=== PATIENT | male | born 1930 | race Caucasian/White ===

== ENCOUNTER → 2016-11-05 | Outpatient (CLI) | payer MEDICARE, BC ==
--- NOTE | 2016-11-05 10:05 | CT ---
EXAMINATION TYPE: CT brain wo con DATE OF EXAM: 11/05/2016 9:56 AM COMPARISON: NONE INDICATION: Alzheimers's. unsteady gait DLP: 930.2 mGycm, Automated exposure control for dose reduction was used. CONTRAST: None CT of the brain is performed utilizing 3 mm thick sections through the posterior fossa and 3 mm thick sections through the remaining calvarium. Study is performed within 24 hours of arrival to the hosp ital. No abnormal hyperdensity is present to suggest an acute intracranial hemorrhage. No mass lesion is evident. No acute infarcts are evident. Mild periventricular white matter hypodensity is present, likely on th e basis of chronic white matter ischemic changes. Ventricles and sulci are prominent for the patient age. There is an air-fluid level within the left maxillary sinus. Correlate for acute left maxillary sinus itis. Mastoid air cells and remaining paranasal sinuses are clear IMPRESSIONS: 1. Atrophy with chronic appearing periventricular white matter ischemic changes. 2. Air-fluid level within the left maxillary sinus. Correlate for acute sinusitis.
== END | disposition home or self-care (01) ==
LOC: RADCTMAIN 09:15
PROVIDERS: ATTEND Psychiatry & Neurology Neurology
DX: R90.89 Other abnormal findings on diagnostic imaging of central nervous system (principal); G31.9 Degenerative disease of nervous system, unspecified
CPT/HCPCS: 70450

== ENCOUNTER → 2016-11-07 | Outpatient (CLI) | payer MEDICARE, BC ==
--- NOTE | 2016-11-13 23:27 | EEG ---
DATE OF SERVICE: 11/07/2016 INDICATION FOR EXAMINATION: This patient is an 86-year-old male being evaluated for unsteady gait and history of Alzheimer's disease. AGE: 86 years. EEG FINDINGS: A routine 21-channel awake digital EEG recording was accomplished utilizing the 10-20 international system with bipolar and referential montages. The background activity in the most alert resting state consists of a low to medium amplitude, fairly well developed and well sustained 6 Hz activity over the posterior head regions. This posterior rhythm attenuates to eye opening. There is a small amount of low amplitude 18-20 Hz beta activity seen maximally over the anterior head regions. Muscle and movement artifact was observed on a few occasions during the tracing. Hyperventilation was not performed. Photic stimulation at flash frequencies of 2-30 Hz produced a minimal occipital driving response. No epileptiform discharges were seen. IMPRESSION: This EEG is moderately abnormal in diffuse fashion due to slowing of the EEG background. The EEG failed to reveal any focal, lateralized or epileptiform abnormalities. Clinical correlation is recommended.
== END | disposition home or self-care (01) ==
LOC: NEUROMAIN 09:19
PROVIDERS: ATTEND Psychiatry & Neurology Neurology
DX: R94.01 Abnormal electroencephalogram [EEG] (principal); R26.81 Unsteadiness on feet; R42 Dizziness and giddiness; Z91.81 History of falling; G30.9 Alzheimer's disease, unspecified; F02.80 Dementia in other diseases classified elsewhere, unspecified severity, without behavioral disturbance, psychotic disturbance, mood disturbance, and anxiety
CPT/HCPCS: 95819

== ENCOUNTER → 2017-01-27 | Outpatient (CLI) | payer MEDICARE, BC ==
--- NOTE | 2017-01-27 15:30 | CT ---
EXAMINATION TYPE: CT brain wo con DATE OF EXAM: 01/27/2017 3:21 PM COMPARISON: November 05, 2016 HISTORY: Unsteady gait CT DLP: [address] of the brain was performed. The ventricles, basal cisterns and sulci overlying the cerebral convexities demonstrate moderate enla rgement. There is no evidence for intracranial hemorrhage or sulcal effacement. There is decreased attenuation about the periventricular white matter and deep white matter of both c erebral hemispheres, compatible with chronic small vessel ischemia. Differential diagnosis does inclu de demyelination. No mass effects are seen.No midline shift. Osseous calvarium is intact. Right frontal scalp hematoma measures 3.3 x 1.7 cm. If symptoms persist consider MRI. IMPRESSION: 1. Age related atrophic and chronic small vessel ischemic change without acute intracranial process s een at this time. 2. Right frontal scalp hematoma without fracture or intracranial hemorrhage.
== END | disposition home or self-care (01) ==
LOC: RADCTMAIN 14:15
PROVIDERS: ATTEND Psychiatry & Neurology Neurology
DX: S00.03XA Contusion of scalp, initial encounter (principal); I67.82 Cerebral ischemia; G31.9 Degenerative disease of nervous system, unspecified
CPT/HCPCS: 70450

== ENCOUNTER 2017-02-27 12:34 | Observation (INO) | payer MEDICARE, BC ==
[2017-02-27] MEDS ORDERED: SODIUM CHLORIDE 0.9% 1,000 ML IV ONE (13:21)
--- NOTE | 2017-02-27 13:23 | ED ---
General Adult HPI - General Chief complaint: Altered Mental Status Stated complaint: Altered Mental Status Time Seen by Provider: 02/27/17 13:09 Source: patient, RN/MD, EMS, RN notes reviewed Mode of arrival: EMS Limitations: altered mental status - History of Present Illness Initial comments: Patient is a pleasant 86-year-old male presenting to the emergency department with concerns for change in mental status. Patient denies feeling confused. Patient admits to falling a week ago and states he struck his forehead at that time. Report also has concern for frequent falls. is a poor historian and offers little information. Patient denies any specific problem otherwise. - Related Data Home Medications Medication Instructions Recorded Confirmed Acetaminophen Tab [Tylenol Tab] 500 mg PO Q6H PRN 05/07/16 02/27/17 Acetaminophen Tab [Tylenol Tab] 500 mg PO QAM 05/07/16 02/27/17 Colloidal Oatmeal [Eucerin Eczema 1 applic TOPICAL HS 05/07/16 02/27/17 Relief] Cyanocobalamin [Vitamin B-12] 1,000 mcg PO 05/07/16 02/27/17 Folic Acid 1 mg PO PC-SUPPER 05/07/16 02/27/17 Kaolin/Pectin [Kaolin Pectin 10 ml PO TID PRN 05/07/16 02/27/17 Suspension] Ketoconazole 2% Shampoo [Nizoral] 1 applic TOPICAL FR 05/07/16 02/27/17 Loperamide [Imodium] 2 mg PO 05/07/16 02/27/17 Melatonin 3 mg PO 05/07/16 02/27/17 Metoprolol Tartrate [Lopressor] 12.5 mg PO BID 05/07/16 02/27/17 Pravastatin Sodium [Pravachol] 20 mg PO HS 05/07/16 02/27/17 Rivaroxaban [Xarelto] 15 mg PO PC-SUPPER 05/07/16 02/27/17 Aspirin 81 mg PO DAILY 02/27/17 02/27/17 Escitalopram [Lexapro] 5 mg PO DAILY 02/27/17 02/27/17 Natural Balance Tears 2 drop BOTH EYES DIRECTED 02/27/17 02/27/17 Omeprazole [PriLOSEC] 20 mg PO DAILY 06/09/17 06/09/17 Allergies Allergy/AdvReac Type Severity Reaction Status Date / Time No Known Allergies Allergy Verified 02/27/17 14:04 Review of Systems ROS Statement: Those systems with pertinent positive or pertinent negative responses have been documented in the HPI. ROS Other: All systems not noted in ROS Statement are negative. Constitutional: Denies: fever Eyes: Denies: eye pain ENT: Denies: ear pain Respiratory: Denies: cough Cardiovascular: Denies: chest pain Endocrine: Denies: fatigue Gastrointestinal: Denies: abdominal pain Genitourinary: Denies: urgency Musculoskeletal: Denies: back pain Skin: Denies: rash Neurological: Denies: weakness Past Medical History Past Medical History: Atrial Fibrillation, Coronary Artery Disease (CAD), Dementia, Hypertension, Renal Disease History of Any Multi-Drug Resistant Organisms: None Reported Past Surgical History: No Surgical Hx Reported Past Psychological History: No Psychological Hx Reported Smoking Status: Never smoker Past Alcohol Use History: None Reported Past Drug Use History: None Reported General Exam Limitations: altered mental status General appearance: alert, in no apparent distress Head exam: Present: other (Right forehead hematoma) Eye exam: Present: normal appearance, PERRL, EOMI ENT exam: Present: normal oropharynx Neck exam: Present: normal inspection. Absent: tenderness Respiratory exam: Present: normal lung sounds bilaterally Cardiovascular Exam: Present: regular rate, normal rhythm GI/Abdominal exam: Present: soft. Absent: tenderness Extremities exam: Present: normal inspection, full ROM. Absent: tenderness Neurological exam: Present: alert, CN II-XII intact. Absent: motor sensory deficit Expanded Cranial nerves: EOM's Intact: Normal Motor strength exam: RUE: 5, LUE: 5, RLE: 5, LLE: 5 Eye Response: (4) open spontaneously Motor Response: (6) obeys commands Verbal Response: (4) confused conversation Psychiatric exam: Present: normal affect, normal mood Skin exam: Present: normal color Course Vital Signs 02/27/17 02/27/17 02/27/17 12:48 12:52 13:22 Temperature 98.1 F Pulse Rate 63 64 66 Respiratory 18 18 Rate Blood Pressure 148/67 154/72 138/66 O2 Sat by Pulse 94 L 94 L Oximetry 02/27/17 02/27/17 02/27/17 13:52 14:22 14:37 Temperature 98.9 F Pulse Rate 60 62 68 Respiratory 18 18 18 Rate Blood Pressure 134/69 141/76 132/71 O2 Sat by Pulse 94 L 95 94 L Oximetry Medical Decision Making - Medical Decision Making Patient reevaluated and resting comfortably in bed. Case discussed with Dr. Stinson , who will admit for Dr. Newell. - Lab Data Result diagrams: 02/27/17 12:57 02/27/17 12:57 Lab Results 02/27/17 02/27/17 02/27/17 Range/Units 12:57 12:57 12:57 WBC 8.9 (3.8-10.6) k/uL RBC 4.19 L (4.30-5.90) m/uL Hgb 13.6 (13.0-17.5) gm/dL Hct 40.1 (39.0-53.0) % MCV 95.6 (80.0-100.0) fL MCH 32.4 (25.0-35.0) pg MCHC 33.9 (31.0-37.0) g/dL RDW 17.1 H (11.5-15.5) % Plt Count 305 (150-450) k/uL Neutrophils % 64 % Lymphocytes % 22 % Monocytes % 9 % Eosinophils % 2 % Basophils % 1 % Neutrophils # 5.7 (1.3-7.7) k/uL Lymphocytes # 1.9 (1.0-4.8) k/uL Monocytes # 0.8 (0-1.0) k/uL Eosinophils # 0.1 (0-0.7) k/uL Basophils # 0.1 (0-0.2) k/uL Anisocytosis Slight PT (9.0-12.0) sec INR (<1.1) APTT (22.0-30.0) sec Sodium 140 (137-145) mmol/L Potassium 4.5 (3.5-5.1) mmol/L Chloride 105 (98-107) mmol/L Carbon Dioxide 25 (22-30) mmol/L Anion Gap 10 mmol/L BUN 23 H (9-20) mg/dL Creatinine 1.18 (0.66-1.25) mg/dL Est GFR (MDRD) Af Amer >60 (>60 ml/min/1.73 sqM) Est GFR (MDRD) Non-Af 58 (>60 ml/min/1.73 sqM) Glucose 97 (74-99) mg/dL Calcium 8.8 (8.4-10.2) mg/dL Total Bilirubin 1.3 (0.2-1.3) mg/dL AST 18 (17-59) U/L ALT 19 L (21-72) U/L Alkaline Phosphatase 134 H (38-126) U/L Total Creatine Kinase 29 L (55-170) U/L CK-MB (CK-2) 1.0 (0.0-2.4) ng/mL CK-MB (CK-2) Rel Index 3.4 Troponin I <0.012 (0.000-0.034) ng/mL Total Protein 7.0 (6.3-8.2) g/dL Albumin 3.6 (3.5-5.0) g/dL Urine Color Urine Appearance (Clear) Urine pH (5.0-8.0) Ur Specific Hamill (1.001-1.035) Urine Protein (Negative) Urine Glucose (UA) (Negative) Urine Ketones (Negative) Urine Blood (Negative) Urine Nitrite (Negative) Urine Bilirubin (Negative) Urine Urobilinogen (<2.0) mg/dL Ur Leukocyte Esterase (Negative) Urine RBC (0-5) /hpf Urine WBC (0-5) /hpf Urine Mucus (None) /hpf Urine Opiates Screen (NotDetected) Ur Oxycodone Screen (NotDetected) Urine Methadone Screen (NotDetected) Ur Propoxyphene Screen (NotDetected) Ur Barbiturates Screen (NotDetected) U Tricyclic Antidepress (NotDetected) Ur Phencyclidine Scrn (NotDetected) Ur Amphetamines Screen (NotDetected) U Methamphetamines Scrn (NotDetected) U Benzodiazepines Scrn (NotDetected) Urine Cocaine Screen (NotDetected) U Marijuana (THC) Screen (NotDetected) 02/27/17 02/27/17 Range/Units 12:57 12:57 WBC (3.8-10.6) k/uL RBC (4.30-5.90) m/uL Hgb (13.0-17.5) gm/dL Hct (39.0-53.0) % MCV (80.0-100.0) fL MCH (25.0-35.0) pg MCHC (31.0-37.0) g/dL RDW (11.5-15.5) % Plt Count (150-450) k/uL Neutrophils % % Lymphocytes % % Monocytes % % Eosinophils % % Basophils % % Neutrophils # (1.3-7.7) k/uL Lymphocytes # (1.0-4.8) k/uL Monocytes # (0-1.0) k/uL Eosinophils # (0-0.7) k/uL Basophils # (0-0.2) k/uL Anisocytosis PT 11.2 (9.0-12.0) sec INR 1.1 (<1.1) APTT 25.0 (22.0-30.0) sec Sodium (137-145) mmol/L Potassium (3.5-5.1) mmol/L Chloride (98-107) mmol/L Carbon Dioxide (22-30) mmol/L Anion Gap mmol/L BUN (9-20) mg/dL Creatinine (0.66-1.25) mg/dL Est GFR (MDRD) Af Amer (>60 ml/min/1.73 sqM) Est GFR (MDRD) Non-Af (>60 ml/min/1.73 sqM) Glucose (74-99) mg/dL Calcium (8.4-10.2) mg/dL Total Bilirubin (0.2-1.3) mg/dL AST (17-59) U/L ALT (21-72) U/L Alkaline Phosphatase (38-126) U/L Total Creatine Kinase (55-170) U/L CK-MB (CK-2) (0.0-2.4) ng/mL CK-MB (CK-2) Rel Index Troponin I (0.000-0.034) ng/mL Total Protein (6.3-8.2) g/dL Albumin (3.5-5.0) g/dL Urine Color Yellow Urine Appearance Clear (Clear) Urine pH 5.5 (5.0-8.0) Ur Specific Hamill 1.015 (1.001-1.035) Urine Protein Negative (Negative) Urine Glucose (UA) Negative (Negative) Urine Ketones Negative (Negative) Urine Blood Trace H (Negative) Urine Nitrite Negative (Negative) Urine Bilirubin Negative (Negative) Urine Urobilinogen <2.0 (<2.0) mg/dL Ur Leukocyte Esterase Negative (Negative) Urine RBC 7 H (0-5) /hpf Urine WBC <1 (0-5) /hpf Urine Mucus Rare H (None) /hpf Urine Opiates Screen Not Detected (NotDetected) Ur Oxycodone Screen Not Detected (NotDetected) Urine Methadone Screen Not Detected (NotDetected) Ur Propoxyphene Screen Not Detected (NotDetected) Ur Barbiturates Screen Not Detected (NotDetected) U Tricyclic Antidepress Not Detected (NotDetected) Ur Phencyclidine Scrn Not Detected (NotDetected) Ur Amphetamines Screen Not Detected (NotDetected) U Methamphetamines Scrn Not Detected (NotDetected) U Benzodiazepines Scrn Not Detected (NotDetected) Urine Cocaine Screen Not Detected (NotDetected) U Marijuana (THC) Screen Not Detected (NotDetected) - Radiology Data Radiology results: report reviewed (Computed tomography scan of the brain shows no acute intercranial hemorrhage or shift. Diffuse atrophy and moderate right frontal scalp hematoma.), image reviewed (Two-view chest x-ray shows COPD and cardiomegaly.) Disposition Clinical Impression: Altered mental status Disposition: ADMITTED IP TO THIS [facility] Referrals: Damien Newell MD [Primary Care Provider] - 1-2 days Time of Disposition: 15:21
[2017-02-27 14:11] LABS: Anisocytosis Slight; Basophils # (A) 0.1 k/uL (0-0.2); Basophils % (A) 1 %; CH 31.5; CHCM 33.1; Eosinophils # (A) 0.1 k/uL (0-0.7); Eosinophils % (A) 2 %; HCT 40.1 % (39.0-53.0); HDW 2.47; HGB 13.6 gm/dL (13.0-17.5); Luc # (Auto) 0.28; Luc % (Auto) 3; Lymphocytes # (A) 1.9 k/uL (1.0-4.8); Lymphocytes % (A) 22 %; MCH 32.4 pg (25.0-35.0); MCHC 33.9 g/dL (31.0-37.0); MCV 95.6 fL (80.0-100.0); Mean Platelet Volume 6.9; Monocytes # (A) 0.8 k/uL (0-1.0); Monocytes % (A) 9 %; Neutrophils # (A) 5.7 k/uL (1.3-7.7); Neutrophils % (A) 64 %; RBC 4.19 m/uL (4.30-5.90); RDW 17.1 % (11.5-15.5); WBC 8.9 k/uL (3.8-10.6); WBC (Perox) 8.83
[2017-02-27 14:15] LABS: Appearance,Urine Clear (Clear); Bilirubin,Urine Negative (Negative); Glucose,Urine (UA) Negative (Negative); Ketones,Urine Negative (Negative); Leukocyte Esterase,Urine Negative (Negative); Mucus,Urine Rare /hpf; Nitrite,Urine Negative (Negative); PH, Urine 5.5 (5.0-8.0); Particle Count 1902; Protein,Urine Negative (Negative); RBC,Urine 7 /hpf (0-5); Specific Gravity,Urine 1.015 (1.001-1.035); UA Billing (MACRO vs. MICRO) MICRO; Urobilinogen,Urine <2.0 mg/dL (<2.0); WBC,Urine <1 /hpf (0-5)
[2017-02-27 14:21] LABS: INR 1.1 (<1.1); Prothrombin Time 11.2 sec (9.0-12.0)
[2017-02-27 14:28] LABS: ALT 19 U/L (21-72); AST 18 U/L (17-59); Alkaline Phosphatase 134 U/L (38-126); Anion Gap 10 mmol/L; Blood Urea Nitrogen 23 mg/dL (9-20); Calcium 8.8 mg/dL (8.4-10.2); Carbon Dioxide 25 mmol/L (22-30); Chloride 105 mmol/L (98-107); Glucose 97 mg/dL (74-99); Non-African American GFR(MDRD) 58 (>60 ml/min/1.73 sqM); Potassium 4.5 mmol/L (3.5-5.1); Sodium 140 mmol/L (137-145); Total Bilirubin 1.3 mg/dL (0.2-1.3)
[2017-02-27 14:38] LABS: Creatine Kinase 29 U/L (55-170)
[2017-02-27 14:49] LABS: Troponin I <0.012 ng/mL (0.000-0.034)
--- NOTE | 2017-02-27 15:00 | XR ---
EXAMINATION TYPE: XR chest 2V DATE OF EXAM: 02/27/2017 HISTORY: altered mental status. REFERENCE: NONE. FINDINGS: Lung volumes are prominent. The heart is mildly enlarged. There is unfolding and ectasia of the thoracic aorta. There is minimal atelectatic changes at the left lung base. IMPRESSION: 1. COPD. 2. CARDIOMEGALY. 3. SCARRING VERSUS ATELECTASIS, LEFT LUNG BASE.
--- NOTE | 2017-02-27 15:06 | CT ---
EXAMINATION TYPE: CT brain wo con DATE OF EXAM: 02/27/2017 HISTORY: altered mental status, large contusion to right side of forehead, pt states he fell [address] DLP: 1153 mGycm. Automated Exposure Control for Dose Reduction was Utilized. TECHNIQUE: CT scan of the head is performed without contrast. COMPARISON: CT scan of brain from one month ago. FINDINGS: There is no acute intracranial hemorrhage or midline shift identified. There is diffuse v entricular and sulcal prominence consistent with diffuse age-related cerebral atrophy. There is new right frontal moderate size acute scalp hematoma on axial image 31 near same level of scalp hematoma prior study. The calvarium remains intact. Patchy soft tissue density bilateral external auditory can als is redemonstrated likely reflects cerumen. The globes are intact and the visualized sinuses are c lear. Nasal septum remains deviated to left of midline. IMPRESSION: No acute intracranial hemorrhage or midline shift. There is moderate diffuse age-relate d cerebral atrophy and moderate-sized right frontal acute scalp hematoma redemonstrated.
[2017-02-27] MEDS ORDERED: LORazepam 2 MG/ML SYRINGE IV PRN (15:21)
[2017-02-27] MEDS ORDERED: NALOXONE 0.4 MG/ML 1 ML VIAL IV PRN (15:21)
[2017-02-27] MEDS ORDERED: PECTIN PO PRN (19:00)
[2017-02-27] MEDS ORDERED: ARTIFICIAL TEARS-HYPROMELLOSE DROPS 15 ML BTL BOTH EYES PRN (19:00)
[2017-02-27] MEDS ORDERED: ACETAMINOPHEN TAB 500 MG TAB PO PRN (19:00)
[2017-02-27] MEDS ORDERED: [UNRECOGNIZED DRUG - OTHER] PO PRN (19:00)
[2017-02-27] MEDS: SODIUM CHLORIDE 0.9% 1,000 ML IV SCH (20:00)
[2017-02-27] MEDS: KETOCONAZOLE 2% SHAMPOO 1 APPLIC/ML TOPICAL SCH (20:00)
[2017-02-27] MEDS: LOPERAMIDE 2 MG CAP PO SCH (20:10)
[2017-02-27] MEDS: PRAVASTATIN SODIUM 20 MG TAB PO SCH (20:10)
[2017-02-27] MEDS: MINERAL OIL-WHITE PETROLATUM 120 GM JAR TOPICAL SCH (20:10)
[2017-02-27] MEDS: MELATONIN 3 MG TABLET PO SCH (20:10)
[2017-02-27] MEDS: CYANOCOBALAMIN 500 MCG TAB PO SCH (20:10)
[2017-02-27] MEDS: METOPROLOL TARTRATE 12.5 MG TAB PO SCH (20:10)
[2017-02-28 06:56] LABS: Basophils # (A) 0.1 k/uL (0-0.2); Basophils % (A) 1 %; CH 30.7; CHCM 32.2; Eosinophils # (A) 0.1 k/uL (0-0.7); Eosinophils % (A) 1 %; HCT 41.5 % (39.0-53.0); HDW 2.32; HGB 13.3 gm/dL (13.0-17.5); Luc # (Auto) 0.17; Luc % (Auto) 2; Lymphocytes # (A) 1.4 k/uL (1.0-4.8); Lymphocytes % (A) 19 %; MCH 30.5 pg (25.0-35.0); MCHC 31.9 g/dL (31.0-37.0); MCV 95.7 fL (80.0-100.0); Mean Platelet Volume 6.9; Monocytes # (A) 0.6 k/uL (0-1.0); Monocytes % (A) 8 %; Neutrophils # (A) 5.1 k/uL (1.3-7.7); Neutrophils % (A) 69 %; RBC 4.34 m/uL (4.30-5.90); RDW 13.8 % (11.5-15.5); WBC 7.4 k/uL (3.8-10.6); WBC (Perox) 7.85
[2017-02-28 07:07] LABS: Anion Gap 8 mmol/L; Blood Urea Nitrogen 20 mg/dL (9-20); Carbon Dioxide 26 mmol/L (22-30); Chloride 105 mmol/L (98-107); Glucose 103 mg/dL (74-99); Non-African American GFR(MDRD) >60 (>60 ml/min/1.73 sqM); Potassium 4.7 mmol/L (3.5-5.1); Sodium 139 mmol/L (137-145)
[2017-02-28] MEDS: METOPROLOL TARTRATE 12.5 MG TAB PO SCH ×2 (08:21→21:08)
[2017-02-28] MEDS: ACETAMINOPHEN TAB 500 MG TAB PO SCH (08:21)
[2017-02-28] MEDS: PANTOPRAZOLE 40 MG TABLET PO SCH (08:22)
[2017-02-28] MEDS: ESCITALOPRAM 5 MG TAB PO SCH (10:49)
--- NOTE | 2017-02-28 11:05 | HP ---
DATE OF ADMISSION: 02/27/2017 CHIEF COMPLAINT: Change in mental status. HISTORY OF PRESENT ILLNESS: This 86-year-old gentleman with a past history of multiple medical problems, including history of atrial fibrillation, history of CAD, history of dementia, history of hearing defect, history of back surgery, history of degenerative joint disease, history of depression, history of dementia, being followed by Dr. Newell in [facility] has been having increasing falls and change in mental status according to the family and the patient taken to [facility] and was admitted to the hospital for further evaluation and treatment. The patient had multiple falls and apparently had hematoma right side of the forehead about a couple of weeks ago which is persisting at this time. The patient is alert and oriented x1 only, the patient unable to give coherent history. Most of the history taken from my discussion with staff and review of the chart at this time. PAST MEDICAL HISTORY: History of atrial fibrillation, coronary artery disease, dementia, hard of hearing, history of back surgery. Medications prior to admission home medications are: 1. Xarelto 50 mg p.o. a.c. supper. 2. Pravachol 20 mg q.h.s. 3. Prilosec 20 mg daily. 4. Natural balanced tears 2 drops daily p.r.n. 5. Lopressor 12.5 mg p.o. b.i.d. 6. Melatonin 3 mg q.h.s. 7. Imodium 2 mg p.o. q.6h. 10. Folic acid 1 mg p.c. supper. 11. Lexapro 5 mg p.o. daily. 12. Vitamin B12 1000 mg q.h.s. 13. Eucerin one application topically daily at bedtime. 14. Aspirin 81 mg p.o. daily. 15. Tylenol 500 mg in the morning and 500 mg q.6h p.r.n. ALLERGIES: None. FAMILY HISTORY, SOCIAL HISTORY AND REVIEW OF SYSTEMS: Could not be taken because of the patient's mental status. PHYSICAL EXAMINATION: Pulse is 54, blood pressure 114/64, respirations 18, temperature 98.1, pulse ox 98% on room air. HEENT: Conjunctivae normal. NECK: No jugular venous distention. CARDIOVASCULAR: S1, S2 muffled. RESPIRATORY: Breath sounds diminished in the bases. Scattered rhonchi, no crackles. ABDOMEN: Soft nontender. No mass palpable. LEGS: No edema. No swelling. CENTRAL NERVOUS SYSTEM: Higher functions as mentioned earlier. Moves all four limbs. No focal deficits. LYMPHATICS: No lymph nodes palpable in the neck, axillae or groin. SKIN: No ulcer, rash or bleeding. Examination of the scalp fluctuation and swelling with hematoma, scalp laceration also present. Joints: No active deforming arthropathy. LABS: WBC is 8.2, hemoglobin 13.6. Otherwise, ALT is 19. Alkaline phosphatase is 134. ASSESSMENT: 1. Change in mental status possible acute on chronic metabolic encephalopathy. 2. Dementia. 3. History of multiple falls and gait dysfunction. 4. Right frontal scalp hematoma. 5. History of atrial fibrillation. 6. On Xarelto. 7. History of coronary artery disease. 8. History of dementia. 9. History of hard of hearing. 10. History of hypertension, essential. 11. History of back surgery and degenerative joint disease. 12. History of depression, not otherwise defined. RECOMMENDATIONS AND DISCUSSION: In this 86-year-old gentleman who presented with multiple complex medical issues, we will monitor the patient closely. Continue the current medications. Continue symptomatic treatment. We will hold the antiplatelet agents as well as Xarelto also. Supplement vitamins. Symptomatic treatment will be provided. PT, OT evaluation. Neurology consultation. Otherwise, prognosis guarded because of multiple complex medical issues. Further recommendations to follow. Repeat labs will be ordered. MTDD
[2017-02-28] MEDS: SODIUM CHLORIDE 0.9% 1,000 ML IV SCH (15:53)
[2017-02-28] MEDS ORDERED: FOLIC ACID 1 MG TAB PO SCH (18:30)
--- NOTE | 2017-02-28 19:57 | PN ---
DATE OF SERVICE: 02/28/2017 This 86-year-old gentleman who was admitted with change in mental status and possible metabolic encephalopathy is being closely monitored. Neurologist also following the patient closely. The patient had a right temporal hematoma. No chest pain. No palpitations. No fever. On exam, alert and oriented x1. Pulse 60, blood pressure 136/66, respirations 16, temperature 98.4. Pulse ox 94% on room air. HEENT: Conjunctivae normal. NECK: No jugular venous distention. CARDIOVASCULAR: Breath sounds diminished at the bases. No rhonchi, no crackles. ABDOMEN: Soft, nontender. LEGS: No edema. No swelling. CENTRAL NERVOUS SYSTEM: Diffusely weak. LABS: WBC 7.5, hemoglobin 13.3 and glucose 103. UA noted. ASSESSMENT: 1. Change in mental status, possible acute on chronic metabolic encephalopathy. 2. Dementia late onset. 3. History of multiple falls and gait dysfunction. 4. Right frontal scalp hematoma. 5. History of atrial fibrillation. 6. On Xarelto. 7. History of coronary artery disease. 8. History of dementia. 9. History of hard of hearing. 10. History of hypertension, essential. 11. History of back surgery and degenerative joint disease . 12. History of anxiety, depression, not otherwise specified. RECOMMENDATIONS AND DISCUSSION: In this 86-year-old gentleman who presented with multiple complex medical problems, we will monitor the patient closely. Continue the current medications, continue symptomatic treatment. Otherwise, . I would recommend follow up with neurology and neurovascular work-up. We will also consult surgery regarding hematoma as well. Further recommendations to follow. MTDD
[2017-02-28] MEDS: MELATONIN 3 MG TABLET PO SCH (21:08)
[2017-02-28] MEDS: CYANOCOBALAMIN 500 MCG TAB PO SCH (21:09)
[2017-02-28] MEDS: PRAVASTATIN SODIUM 20 MG TAB PO SCH (21:09)
[2017-02-28] MEDS: MINERAL OIL-WHITE PETROLATUM 120 GM JAR TOPICAL SCH (21:09)
[2017-02-28] MEDS: LOPERAMIDE 2 MG CAP PO SCH (21:09)
--- NOTE | 2017-02-28 22:22 | P.CNNES ---
History of Present Illness Consult date: 02/28/17 Requesting physician: Juliocesar Curiel Reason for Consult: Altered mental status Chief complaint: Altered mental status History of Present Illness: Neurology is requested to consult on an 86-year-old male with a history of medical problems that include atrial fibrillation, history of coronary artery disease, history of dementia, hearing defect, back surgery, degenerative joint disease, depression, dementia. Patient is resident of [place] many lodged and has been having increased falls and changes in mental status according to family members. Patient was transported to the emergency department for further evaluation treatment. Patient has been noted to have multiple falls and apparently had hematoma on the right side of the forehead for the last several weeks possibly as long as one month or more. Patient is alert and oriented 1. Patient is an extremely poor historian and most information was obtained from chart and staff. On contact, the patient was supine in bed, resting, was alert and oriented 1, in no acute distress. There was a visible elevated "walnut sized" hematoma in the patient's right frontal area. It is noted that the patient has been seen by hospitalist and consult placed to Dr. Demarco for evaluation of the hematoma. Review of Systems All systems not noted in HPI or negative. 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 PT LIVES AT [facility] SINCE 2013. STAFF STATED PT AMBULATORY USING A ROLLING WALKER. PT SERVED IN THE [employer] WHEN YOUNGER. Smoking Status: Never smoker Past Alcohol Use History: None Reported - Past Family History Father Family Medical History: Unable to Obtain Additional Family Medical History / Comment(s): DAUGHTER DID'NT KNOW HX Mother Family Medical History: Unable to Obtain Medications and Allergies Home Medications Medication Instructions Recorded Confirmed Type Acetaminophen Tab [Tylenol Tab] 500 mg PO Q6H PRN 05/07/16 02/27/17 History Acetaminophen Tab [Tylenol Tab] 500 mg PO QAM 05/07/16 02/27/17 History Colloidal Oatmeal [Eucerin Eczema 1 applic TOPICAL HS 05/07/16 02/27/17 History Relief] Cyanocobalamin [Vitamin B-12] 1,000 mcg PO HS 05/07/16 02/27/17 History Folic Acid 1 mg PO PC-SUPPER 05/07/16 02/27/17 History Kaolin/Pectin [Kaolin Pectin 10 ml PO TID PRN 05/07/16 02/27/17 History Suspension] Ketoconazole 2% Shampoo [Nizoral] 1 applic TOPICAL FR 05/07/16 02/27/17 History Loperamide [Imodium] 2 mg PO HS 05/07/16 02/27/17 History Melatonin 3 mg PO HS 05/07/16 02/27/17 History Metoprolol Tartrate [Lopressor] 12.5 mg PO BID 05/07/16 02/27/17 History Pravastatin Sodium [Pravachol] 20 mg PO HS 05/07/16 02/27/17 History Rivaroxaban [Xarelto] 15 mg PO PC-SUPPER 05/07/16 02/27/17 History Aspirin 81 mg PO DAILY 02/27/17 02/27/17 History Escitalopram [Lexapro] 5 mg PO DAILY 02/27/17 02/27/17 History Natural Balance Tears 2 drop BOTH EYES DIRECTED 02/27/17 02/27/17 History Omeprazole [PriLOSEC] 20 mg PO DAILY 02/27/17 02/27/17 History Allergies Allergy/AdvReac Type Severity Reaction Status Date / Time No Known Allergies Allergy Verified 02/27/17 14:04 Physical Examination - Vital Signs Vital Signs: Vital Signs Temp Pulse Resp BP Pulse Ox 02/28/17 20:00 18 02/28/17 19:27 98.2 F 67 18 112/60 93 L 02/28/17 15:35 98.3 F 65 16 131/67 94 L 02/28/17 11:49 98.2 F 60 16 136/66 94 L 02/28/17 07:18 98.2 F 65 16 138/73 97 02/28/17 04:00 97.9 F 55 L 18 149/74 94 L 02/27/17 23:19 54 L 18 114/64 93 L 02/27/17 23:05 18 Intake and Output 02/28/17 02/28/17 02/28/17 06:59 14:59 22:59 Output Total 950 Balance -950 Output: Urine 950 Other: Voiding Method Urinal Urinal Urinal # Voids 2 Constitutional: AOx1, cooperative HEENT: NC/AT, no facial asymmetry is seen. Throat: Supple, no masses Respiratory: No increased work of breathing Cardiac: Regular rate and Rhythm GI: non tender, non distended Musculoskeletal: Transplanter strengths are equal bilaterally 5/5, Lower extremity strengths are equal bilaterally at 5/5. Neurological: CN II-XII grossly in tact, patient was AOx1, speech is clear however does not answer questions appropriately in most instances, no unilateralizing weakness, no seizure activity note on physical exam. Sensation was normal. Integementary: no rash, no erythema Psychiatric: mood and affect appropriate MMSE: 09/19, 09/[address] of the brain noted yesterday noted no acute intracranial hemorrhage or midline shift. There is moderate diffuse age-related cerebral atrophy and moderate size right frontal acute scalp hematoma redemonstrated. Since October the patient has had 2 other CTs of the brain for comparative purposes. - Laboratory Findings CBC and BMP: 02/28/17 06:09 02/28/17 06:09 Abnormal Lab Findings: Abnormal Labs 02/27/17 02/27/17 02/27/17 12:57 12:57 12:57 RBC 4.19 L RDW 17.1 H BUN 23 H Glucose ALT 19 L Alkaline Phosphatase 134 H Total Creatine Kinase 29 L Urine Blood Urine RBC Urine Mucus 02/27/17 02/28/17 12:57 06:09 RBC RDW BUN Glucose 103 H ALT Alkaline Phosphatase Total Creatine Kinase Urine Blood Trace H Urine RBC 7 H Urine Mucus Rare H Assessment and Plan (1) Dementia Status: Acute (2) Hematoma Status: Acute (3) Altered mental status Status: Acute Plan: Altered mental status: Patient is known to have chronic memory loss Dementia. Patient's altered mental status appears consistent with his dementia history. It is noted that he does appear to have been trialed on Namenda 15 mg while inpatient at [facility] in [place] but that was stopped earlier this month. On exam the patient's Mini-Mental Status exam is 12 out of 30 with one third recall. Patient is noted to have chronic small vessel ischemic disease on prior CT in January 2017. Current status does appear to be consistent with that underlying etiology. Patient CBC and CMP were negative for contributory factors. We will order the following diagnostic workup. Diagnostic workup and orders to include: EEG Carotid Doppler study Continue neuro checks every shift Continue telemetry monitoring Right frontal hematoma: Primary care provider/hospitalist has already ordered consult by Dr. Demarco for evaluation. It is noted that the patient's hematoma was referenced in the CT of the brain conducted in early January 2017. Defer treatment options to Dr. Demarco. Neurology will continue to follow provide further updates as needed or warranted. Feel free to contact our office with any questions. I discussed the patient's pertinent medical information with Dr. Andino. He agrees with the plan of care as implemented.
[2017-03-01 07:52] VITALS: RESP 16
[2017-03-01] MEDS: PANTOPRAZOLE 40 MG TABLET PO SCH (08:01)
[2017-03-01] MEDS: ACETAMINOPHEN TAB 500 MG TAB PO SCH (08:02)
[2017-03-01] MEDS: ESCITALOPRAM 5 MG TAB PO SCH (08:02)
[2017-03-01] MEDS: METOPROLOL TARTRATE 12.5 MG TAB PO SCH (08:02)
[2017-03-01] MEDS: KETOCONAZOLE 2% SHAMPOO 1 APPLIC/ML TOPICAL SCH (09:40)
--- NOTE | 2017-03-01 09:53 | US ---
EXAMINATION TYPE: US carotid duplex BILAT DATE OF EXAM: 03/01/2017 COMPARISON: NONE CLINICAL HISTORY: confusion. Altered mental status, confusion EXAM MEASUREMENTS: RIGHT: Peak Systolic Velocity (PSV) cm/sec ----- Right CCA: 76.8 ----- Right ICA: 90.5 ----- Right ECA: 190.3 ICA/CCA ratio: 1.2 RIGHT: End Diastole cm/sec ----- Right CCA: 16.4 ----- Right ICA: 12.8 ----- Right ECA: 9.1 LEFT: Peak Systolic Velocity (PSV) cm/sec ----- Left CCA: 68.5 ----- Left ICA: 73.6 ----- Left ECA: 104.8 ICA/CCA ratio: 1.1 LEFT: End Diastole cm/sec ----- Left CCA: 11.5 ----- Left ICA: 10.2 ----- Left ECA: 4.7 VERTEBRALS (direction of flow): Right Vertebral: Antegrade Left Vertebral: Antegrade Mild plaque noted bilateral bifurcations. Increased velocities right ECA Grayscale images show intimal hyperplasia bilateral common carotid arteries. There is mild eccentric plaque at right carotid bulb. There is mild to moderate eccentric plaque at left carotid bulb. Veloci ty measurements and ratios remain within normal limits bilaterally in visualized portion of both inte rnal carotid arteries. IMPRESSION: Mild to moderate atherosclerotic change bilaterally without hemodynamically significant stenosis seen in either internal carotid artery.
--- NOTE | 2017-03-01 10:48 | P.GSCN ---
History of Present Illness Consult date: 03/01/17 Reason for Consult: Scalp hematoma History of present illness: Patient was apparently involved in a fall a few weeks ago. He had a scalp hematoma at that time. The hematoma itself has not changed dramatically in size. We're asked to see this patient for possible drainage of the hematoma or to evaluate for infection. The patient says is mildly painful but better. Repeat CAT scan shows no air within the hematoma and no underlying skull injury. 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 PT LIVES AT [facility] SINCE 2013. STAFF STATED PT AMBULATORY USING A ROLLING WALKER. PT SERVED IN THE [employer] WHEN YOUNGER. Smoking Status: Never smoker Past Alcohol Use History: None Reported Past Drug Use History: None Reported - Past Family History Father Family Medical History: Unable to Obtain Additional Family Medical History / Comment(s): DAUGHTER DID'NT KNOW HX Mother Family Medical History: Unable to Obtain Medications and Allergies Home Medications Medication Instructions Recorded Confirmed Type Acetaminophen Tab [Tylenol Tab] 500 mg PO Q6H PRN 05/07/16 02/27/17 History Acetaminophen Tab [Tylenol Tab] 500 mg PO QAM 05/07/16 02/27/17 History Colloidal Oatmeal [Eucerin Eczema 1 applic TOPICAL HS 05/07/16 02/27/17 History Relief] Cyanocobalamin [Vitamin B-12] 1,000 mcg PO HS 05/07/16 02/27/17 History Folic Acid 1 mg PO PC-SUPPER 05/07/16 02/27/17 History Kaolin/Pectin [Kaolin Pectin 10 ml PO TID PRN 05/07/16 02/27/17 History Suspension] Ketoconazole 2% Shampoo [Nizoral] 1 applic TOPICAL FR 05/07/16 02/27/17 History Loperamide [Imodium] 2 mg PO HS 05/07/16 02/27/17 History Melatonin 3 mg PO HS 05/07/16 02/27/17 History Metoprolol Tartrate [Lopressor] 12.5 mg PO BID 05/07/16 02/27/17 History Pravastatin Sodium [Pravachol] 20 mg PO HS 05/07/16 02/27/17 History Rivaroxaban [Xarelto] 15 mg PO PC-SUPPER 05/07/16 02/27/17 History Aspirin 81 mg PO DAILY 02/27/17 02/27/17 History Escitalopram [Lexapro] 5 mg PO DAILY 02/27/17 02/27/17 History Natural Balance Tears 2 drop BOTH EYES DIRECTED 02/27/17 02/27/17 History Omeprazole [PriLOSEC] 20 mg PO DAILY 02/27/17 02/27/17 History Allergies Allergy/AdvReac Type Severity Reaction Status Date / Time No Known Allergies Allergy Verified 02/27/17 14:04 Surgical - Exam Vital Signs Temp Pulse Resp BP Pulse Ox 98.1 F 63 18 148/67 94 L 02/27/17 12:48 02/27/17 12:48 02/27/17 12:48 02/27/17 12:48 02/27/17 12:48 Physical exam: General: Well-developed, well-nourished HEENT: 3 x 2 cm hematoma right frontal scalp, nontender, no erythema, sclerae nonicteric Abdomen: Nontender, nondistended Extremities: No edema Neuro: Alert and oriented Results - Labs 02/28/17 06:09 02/28/17 06:09 Assessment and Plan (1) Scalp hematoma Narrative/Plan: Continue observation at this time. No surgical plans for drainage. Will follow. Status: Acute
[2017-03-01 11:53] VITALS: BP 121/57; PULSE 53; TEMP 97.9
--- NOTE | 2017-03-01 14:02 | P.PN ---
Subjective Principal diagnosis: Altered mental status Patient is an 86-year-old male being followed by neurology with a history of medical problems include atrial fibrillation, coronary artery disease, dementia , hearing deficit, back surgery, degenerative joint disease, depression, dementia. He is resident of assisted living facility and has been having increased falls and changes in mental status according the family. She was brought to the emergency department for further evaluation and treatment. Patient has been noted to have multiple falls and apparently had hematoma on the right side of the forehead the last several weeks possibly as long as one month or more. Patient is alert and oriented 1. She is extremely poor historian and most information is obtained from chart and staff. Interval Update: 03-01-17 On contact today , the patient was supine in bed AOx3 in no acute distress. Patient is unchanged form yesterday. MMSE today was 07/20 with 1/3 recall, yesterday was 09/19 with 1/3 recall. Patients mental status scoring places him as severe decline. Objective - Vital Signs Vital signs: Vital Signs Temp 97.9 F 03/01/17 11:52 Pulse 53 L 03/01/17 11:52 Resp 16 03/01/17 11:52 BP 121/57 03/01/17 11:52 Pulse Ox 93 L 03/01/17 11:52 Intake & Output 02/28/17 03/01/17 03/01/17 18:59 06:59 18:59 Intake Total 400 Output Total 600 Balance -600 400 Intake: Oral 400 Output: Urine 600 Other: Voiding Method Urinal Urinal Urinal # Voids 1 - Exam Constitutional: AOx1, cooperative HEENT: NC/AT, no facial asymmetry is seen. Throat: Supple, no masses Respiratory: No increased work of breathing Cardiac: Regular rate and Rhythm GI: non tender, non distended Musculoskeletal: Forensic Accountant strengths are equal bilaterally 5/5, Lower extremity strengths are equal bilaterally at 5/5. Neurological: CN II-XII in tact, patient was AOx1, speech and language are normal, no unilateralizing weakness, no seizure activity note on physical exam. Sensation was normal. Integementary: no rash, no erythema Psychiatric: mood appropriate - Labs CBC & Chem 7: 02/28/17 06:09 02/28/17 06:09 Assessment and Plan (1) Dementia Status: Acute (2) Hematoma Status: Acute (3) Altered mental status Status: Acute Plan: Altered mental status: Patient is known to have chronic memory loss Dementia. Patient's altered mental status appears consistent with his dementia history. It is noted that he does appear to have been trialed on Namenda 15 mg while inpatient at [facility] in [place] but that was stopped earlier this month. On exam the patient's Mini-Mental Status exam is 10 out of 30 with one third recall today. Patient is noted to have chronic small vessel ischemic disease on prior CT in January 2017 and on this admission but no acute process. Current status does appear to be consistent with that underlying etiology. Patient CBC and CMP were negative for contributory factors. We will order the following diagnostic workup. Diagnostic workup and orders to include: EEGStill pending Carotid Doppler [id number] atherosclerotic changes bilaterally Continue neuro checks every shift Continue telemetry monitoring Right frontal hematoma: Primary care provider/hospitalist has already ordered consult by Dr. Demarco for evaluation. It is noted that the patient's hematoma was referenced in the CT of the brain conducted in early January 2017. Defer treatment options to Dr. Demarco. Patient can be cleared from a neurological standpoint if the patient only remaining testing is EEG prior to discharge. If patient is discharged, refer the patient for follow-up with our office within 10-14 days. Neurology will continue to follow on an as-needed basis until discharge. Feel free to contact our office with any questions. I discussed the patient's pertinent medical information with Dr. Andino. He agrees with the plan of care as implemented.
--- NOTE | 2017-03-01 14:54 | DS ---
DATE OF ADMISSION: 02/27/2017 DATE OF DISCHARGE: FINAL DIAGNOSES: 1. Change in mental status possible acute on chronic metabolic encephalopathy. 2. Dementia late-onset. 3. History of multiple falls and gait dysfunction. 4. Right frontal scalp hematoma. 5. History of atrial fibrillation. 6. Was on Xarelto. 7. History of coronary artery disease. 8. History of dementia. 9. History of hard of hearing. 10. History of hypertension, essential. 11. History of back surgery and degenerative joint disease. 12. Anxiety, depression, not otherwise specified. DISCHARGE DISPOSITION: Patient being transferred in stable condition with guarded prognosis back to the longterm. Total time taken: 35 minutes. HISTORY OF PRESENT ILLNESS: This 86-year-old gentleman with a past medical history of multiple medical problems including change in mental status, acute on chronic metabolic encephalopathy. The patient had no evidence of infection. The patient's medications are continued. The patient improved significantly. On exam, vitals are stable. CARDIOVASCULAR SYSTEM: S1, S2. ABDOMEN: Soft. NERVOUS SYSTEM: No focal deficits. The patient still has hematoma on the right yarsanism area. The patient also seen by Dr. Demarco from surgery and as well as neurology. DISCHARGE ADVICE: 1. Diet is cardiac. 2. Activity as tolerated. 3. Hold that Xarelto and aspirin for now until the resolution of the hematomas. To be restarted later. MEDICATIONS: 1. Tylenol 500 mg q.6 p.r.n. 2. Eucerin 1 daily. 3. Vitamin B 2000 mg q.h.s. 4. Lexapro 5 mg p.o. daily. 5. Folic acid 1 mg daily. 6. Kaopectate t.i.d. p.r.n. 7. Nizoral shampoo topically daily. 8. Imodium 2 mg q.h.s. 9. Melatonin 3 mg q.h.s. 10. Lopressor 12.5 mg b.i.d. 11. Nizoral 12. Prilosec 20 mg daily. 13. Pravachol 20 mg at bedtime. 14. Multivitamins 1 p.o. daily. The patient will be discharged in a stable condition with guarded prognosis. [facility]
== END 2017-03-01 16:41 ==
LOC: EC 12:34 → 3OBS 15:21
PROVIDERS: ADMIT Internal Medicine; ATTEND Internal Medicine
DX: R41.82 Altered mental status, unspecified (principal); F03.90 Unspecified dementia, unspecified severity, without behavioral disturbance, psychotic disturbance, mood disturbance, and anxiety; R29.6 Repeated falls; I48.91 Unspecified atrial fibrillation; I25.10 Atherosclerotic heart disease of native coronary artery without angina pectoris; I10 Essential (primary) hypertension; H91.90 Unspecified hearing loss, unspecified ear; F41.9 Anxiety disorder, unspecified; F32.9 Major depressive disorder, single episode, unspecified; Z91.81 History of falling; Z85.46 Personal history of malignant neoplasm of prostate; Z79.899 Other long term (current) drug therapy; Z79.82 Long term (current) use of aspirin; Z79.01 Long term (current) use of anticoagulants; S00.03XD Contusion of scalp, subsequent encounter; W19.XXXD Unspecified fall, subsequent encounter; M47.9 Spondylosis, unspecified
CPT/HCPCS: 96360; 96361; 99285; 36415; 80053; 80048; 82550; 82553; 84484; 85025 ×2; 85610; 85730; 81001; 80306; 71020; 93880; 70450; G0378 ×3